=== PATIENT | female | born 1955 | race American Indian/Alaskan Native ===

== ENCOUNTER 2021-10-29 05:48 | Day surgery (SDC) | payer MEDICARE ==
[2021-10-26 10:01] LABS: Hematocrit 33.4 % (30.3-42.9); Hemoglobin 11.3 gm/dl (10.1-14.3); Mean Corpuscular HGB Conc 34 % (30-34); Mean Corpuscular Volume 91 fl (79-97); Platelet Count 306 K/mm3 (140-440); Red Blood Count 3.68 M/mm3 (3.65-5.03); Red Cell Distribution Width 15.3 % (13.2-15.2)
[2021-10-26 10:12] LABS: BUN/Creatinine Ratio 12; Blood Urea Nitrogen 12 mg/dL (7-17); Calcium 9.5 mg/dL (8.4-10.2); Hemolysis Index 0
[2021-10-29] MEDS ORDERED: LACTATED RINGERS 1,000 ML ONE (06:09)
[2021-10-29] MEDS ORDERED: BUPIVACAINE/PF (0.25%) 2.5 MG/ML 10 ML VIAL INFILTRATI ONE ×2 (07:19→08:31)
[2021-10-29] MEDS ORDERED: EPINEPHrine/PF 1 MG/1 ML INJ ONE (07:19)
[2021-10-29] MEDS ORDERED: propofoL 200 MG/20 ML VIAL IV ONE (07:39)
[2021-10-29] MEDS ORDERED: ONDANSETRON 4 MG/2 ML INJ ONE (07:39)
[2021-10-29] MEDS ORDERED: fentaNYL 100 MCG/2 ML INJ ONE (07:39)
[2021-10-29] MEDS ORDERED: LIDOCAINE MPF (2%) 20 MG/1 ML VIAL 5 ML ONE (07:39)
[2021-10-29] MEDS ORDERED: LACTATED RINGERS 1,000 ML IV SCH (07:45)
--- NOTE | 2021-10-29 07:46 | Anesthesia Consultation ---
Anesthesia Consult and Med Hx - Airway Anesthetic Teeth Evaluation: Good ROM Head & Neck: Adequate Mental/Hyoid Distance: Adequate Mallampati Class: Class II Intubation Access Assessment: Probably Good - Cardiac Exam Cardiac Exam: RRR - Pre-Operative Health Status ASA Pre-Surgery Classification: ASA2 Proposed Anesthetic Plan: General - Pulmonary Hx Smoking: No Hx Sleep Apnea: Yes (DX SLEEP APNEA WITH CPAP USE) - Cardiovascular System Hx Hypertension: Yes - Central Nervous System Hx Seizures: No Hx Psychiatric Problems: No - Gastrointestinal Hx Gastroesophageal Reflux Disease: No - Endocrine Hx Renal Disease: No - Hematic Hx Anemia: No Hx Sickle Cell Disease: No - Other Systems Hx Alcohol Use: No Hx Substance Use: No Hx Cancer: No
--- NOTE | 2021-10-29 07:46 | Anesthesia Day of Surgery ---
Anesthesia Day of Surgery - Day of Surgery Patient Examined: Yes Patient H&P Reviewed: Yes Patient is NPO: Yes Beta Blockers: No
[2021-10-29] MEDS ORDERED: ceFAZolin/STERILE WATER 2 GM/20 ML SYRINGE IV NR (08:00)
[2021-10-29] MEDS ORDERED: HYDROmorphone 0.5 MG/0.5 ML INJ IV PRN ×2 (08:30)
[2021-10-29] MEDS ORDERED: ONDANSETRON 4 MG/2 ML INJ IV PRN (08:30)
[2021-10-29] MEDS ORDERED: EPINEPHrine/PF 1 MG/1 ML INJ IV ONE (08:31)
[2021-10-29] MEDS ORDERED: SODIUM CHLORIDE 0.9% IRRIG SOLN 2000 ML IR ONE (08:32)
[2021-10-29 10:51] VITALS: BP 121/59
--- NOTE | 2021-10-29 17:59 | Post Anesthesia Evaluation ---
- Post Anesthesia Evaluation Patient Participated: Yes Airway Patent: Yes Stable Respiratory Function: Yes Nausea/Vomiting: No Temp > 96.8F: Yes Pain Manageable: Yes Adequeate Hydration: Yes Anesthesia Complications: No Block Receding Appropriately: Not Applicable Patient on Ventilator: No
--- NOTE | 2021-10-30 03:45 | Operative Report ---
DATE OF SURGERY: 10/29/2021 PREOPERATIVE DIAGNOSIS: Left knee medial meniscus tear. POSTOPERATIVE DIAGNOSIS: Left knee medial meniscus tear with knee arthritis. PROCEDURE PERFORMED: Left knee partial medial meniscectomy. SURGEON: Ariel Brooks II, M.D. ANESTHESIA: General. COMPLICATIONS: None. DRAINS: None. SPECIMENS: None. TOURNIQUET TIME: 27 minutes. Examination under anesthesia reveals full range of motion, no instability. 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 There was also a radial tear and posterior horn tear of the medial meniscus extending to the red-red zone. INDICATIONS: The patient is a 66-year-old female who has been having fracture pain in her left knee. Evaluation workup suggestive of a medial meniscus tear. It was recommended the patient undergo surgical management. Risks, benefits and limitations of surgery were discussed with the patient including bleeding, infection, injury to nerves, blood vessel, need for operation. The patient appeared to understand these risks and consented to undergo surgery. PREOPERATIVE MEDICATIONS: Ancef 2 grams administered 30 minutes prior to skin incision. TECHNIQUE: In the preoperative holding area, site was marked with surgical marking pen. Extremity was prepped and draped in sterile fashion in a supine position. Standard anteromedial and anterolateral portals were placed and diagnostic arthroscopy was performed. 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 There was noted to be a radial tear of the mid body of the medial meniscus extending to the red-red zone as well as delamination tear of the posterior horn of the medial meniscus. The oscillating shaver was used to debride the meniscus back to a stable rim. The ACL and PCL appeared to be intact. The lateral compartment had some grade 2 chondromalacia in the lateral compartment. There was also degenerative tearing of the lateral meniscus present as well. The arthroscope was removed. Incision was closed with 3-0 nylon. Sterile dressing was applied. The patient was awakened and taken to recovery room in stable condition. POSTOPERATIVE PLAN: The patient will be weightbear as tolerated. Physical therapy to work on range of motion exercises. I will see her back for a followup visit 2 weeks postop. TID: [id number] RECEIPT: [id number] ASI/RIS/ANI
== END 2021-10-29 10:15 | disposition home or self-care (01) ==
LOC: OR 05:48
PROVIDERS: ATTEND Orthopaedic Surgery Sports Medicine
DX: S83.242A Other tear of medial meniscus, current injury, left knee, initial encounter (principal); S83.282A Other tear of lateral meniscus, current injury, left knee, initial encounter; M02.86 Other reactive arthropathies, knee; M22.42 Chondromalacia patellae, left knee; E78.00 Pure hypercholesterolemia, unspecified; I10 Essential (primary) hypertension; G47.30 Sleep apnea, unspecified; M19.90 Unspecified osteoarthritis, unspecified site; K21.9 Gastro-esophageal reflux disease without esophagitis; Z20.822 Contact with and (suspected) exposure to COVID-19; Z79.899 Other long term (current) drug therapy; Z88.8 Allergy status to other drugs, medicaments and biological substances; Z98.41 Cataract extraction status, right eye; Z98.42 Cataract extraction status, left eye; Z98.890 Other specified postprocedural states; X58.XXXA Exposure to other specified factors, initial encounter; Y93.89 Activity, other specified; Y92.89 Other specified places as the place of occurrence of the external cause; Y99.8 Other external cause status
CPT/HCPCS: 29881; 36415; 80048; 85027; J0171; J0690; J2405; J2704; J3010; J3490; J7120; U0003